=== PATIENT | male | born 1990 | race Caucasian/White ===

== ENCOUNTER 2017-04-04 14:56 | Emergency (ER) | payer OTHER ==
[~2017-04-04] VITALS: Ht 185.4 cm; Wt 99.8 kg
[~2017-04-04 14:56] MED LIST: BENADRYL25 M1 PO; KEFLEX 500MG.500 MG PO; NOMEDS *
--- OUTSIDE RECORDS SUMMARY | 2017-04-04 15:02 | External Medical Summary Rpt | CCD ---
Author Author , YADIRA Organization YADIRA Address Unknown Phone [email or web address] Purpose Continuity of Care Document - 08-17-2016 through 2016 Results Labs Lab Lab Date Result Refere Interp Status Commen Order Detail nces retati t Range on CHLAMYDIA AND GONORRHEA TESTING (08-17-2016 13:30) Chlamyd POSITIV complet ia 017 E ed trachom 13:30 atis rRNA [Presen ce] in Unspeci fied specime n by Probe & target amplifi cation method Neisser NEGATIV complet ia 017 E ed gonorrh 13:30 oeae rRNA [Presen ce] in Unspeci fied specime n by Probe & target amplifi cation method CHLAMYDIA AND GONORRHEA TESTING (08-17-2016 13:30) COLLECT AH/GENP complet OR 017 ROBE ed 13:30 ETHNICI WHITE, complet TY 017 NON-HIS ed 13:30 PANIC KIT complet EXPIRAT 017 017 ed ION 13:30 DATE SYMPTOM NO complet S 017 ed 13:30 REASON SEX complet FOR 017 PARTNER ed REQUEST 13:30 REFERRA L SPECIME URINE complet N 017 ed SOURCE 13:30 PREGNAN NO complet T 017 ed 13:30 CHART N/A complet NUMBER 017 ed 13:30 Chlamyd Pending complet ia 017 ed trachom 13:30 atis rRNA [Presen ce] in Unspeci fied specime n by Probe & target amplifi cation method Neisser Pending complet ia 017 ed gonorrh 13:30 oeae rRNA [Presen ce] in Unspeci fied specime n by Probe & target amplifi cation method
--- OUTSIDE RECORDS SUMMARY | 2017-04-04 15:02 | External Medical Summary Rpt | CCD ---
Author Author , YADIRA Organization YADIRA Address Unknown Phone [email or web address] Purpose Continuity of Care Document - 08-17-2016 [...]
--- OUTSIDE RECORDS SUMMARY | 2017-04-04 15:03 | External Medical Summary Rpt ---
Author Author YADIRA Erickson, YADIRA [employer] Address Unknown Phone Unavailable Results CHLAMYDIA AND GONORRHEA TESTING Observa Value Referen Units Interpr Notes Date tion ce etation Range COLLECT AH/GENP No No No No Aug 17 OR ROBE informa informa informa informa 2017 tion in tion in tion in tion in 1:30 PM source source source source data data data data ETHNICI WHITE, No No No No Aug 17 TY NON-HIS informa informa informa informa 2017 PANIC tion in tion in tion in tion in 1:30 PM source source source source data data data data KIT 05-31-2 No No No No Aug 17 EXPIRAT 017 informa informa informa informa 2017 ION tion in tion in tion in tion in 1:30 PM DATE source source source source data data data data SYMPTOM NO No No No No Aug 17 S informa informa informa informa 2017 tion in tion in tion in tion in 1:30 PM source source source source data data data data REASON SEX No No No No Aug 17 FOR PARTNER informa informa informa informa 2017 REQUEST tion in tion in tion in tion in 1:30 PM REFERRA source source source source L data data data data SPECIME URINE No No No No Aug 17 N informa informa informa informa 2017 SOURCE tion in tion in tion in tion in 1:30 PM source source source source data data data data PREGNAN NO No No No No Aug 17 T informa informa informa informa 2017 tion in tion in tion in tion in 1:30 PM source source source source data data data data CHART N/A No No No No Aug 17 NUMBER informa informa informa informa 2017 tion in tion in tion in tion in 1:30 PM source source source source data data data data Chlamyd POSITIV No No No NEGATIV Aug 17 ia E informa informa informa E 2017 trachom tion in tion in tion in RESULT= 1:30 PM atis source source source WITHIN rRNA data data data NORMAL [Presen ce] in LIMITSP Unspeci OSITIVE fied specime RESULT= n by Probe & ABNORMA target LEQUIVO RAKESH amplifi RESULT= cation method INDETER MINATEU NSATISF ACTORY RESULT= INVALID Neisser NEGATIV No No No NEGATIV Aug 17 ia E informa informa informa E 2017 gonorrh tion in tion in tion in RESULT= 1:30 PM oeae source source source WITHIN rRNA data data data NORMAL [Presen ce] in LIMITSP Unspeci OSITIVE fied specime RESULT= n by Probe & ABNORMA target LEQUIVO RAKESH amplifi RESULT= cation method INDETER MINATEU NSATISF ACTORY RESULT= INVALID THE APTIMA COMBO 2 ASSAY IS NOT INTENDE D FOR THE EVALUAT ION OF SUSPECT EDSEXUA L ABUSE OR FOR OTHER MEDICO- LEGAL INDICAT IONS. FOR THOSE PATIENT S FORWHOM A FALSE POSITIV E RESULT MAY HAVE ADVERSE PSYCHO- SOCIAL IMPACT, [facility] RET[facility]I NG.\.br \This report contain s patient informa tion that must be protect ed in accorda nce with the Health Insuran ce Portabi lity and Account ability Act. CHLAMYDIA AND GONORRHEA TESTING Observa Value Referen Units Interpr Notes Date tion ce etation Range COLLECT AH/GENP No No No No Aug 17 OR ROBE informa informa informa informa 2017 tion in tion in tion in tion in 1:30 PM source source source source data data data data ETHNICI WHITE, No No No No Aug 17 TY NON-HIS informa informa informa informa 2017 PANIC tion in tion in tion in tion in 1:30 PM source source source source data data data data KIT 05-31-2 No No No No Aug 17 EXPIRAT 017 informa informa informa informa 2017 ION tion in tion in tion in tion in 1:30 PM DATE source source source source data data data data SYMPTOM NO No No No No Aug 17 S informa informa informa informa 2017 tion in tion in tion in tion in 1:30 PM source source source source data data data data REASON SEX No No No No Aug 17 FOR PARTNER informa informa informa informa 2017 REQUEST tion in tion in tion in tion in 1:30 PM REFERRA source source source source L data data data data SPECIME URINE No No No No Aug 17 N informa informa informa informa 2017 SOURCE tion in tion in tion in tion in 1:30 PM source source source source data data data data PREGNAN NO No No No No Aug 17 T informa informa informa informa 2017 tion in tion in tion in tion in 1:30 PM source source source source data data data data CHART N/A No No No No Aug 17 NUMBER informa informa informa informa 2017 tion in tion in tion in tion in 1:30 PM source source source source data data data data Chlamyd Pending No No No No Aug 17 ia informa informa informa informa 2017 trachom tion in tion in tion in tion in 1:30 PM atis source source source source rRNA data data data data [Presen ce] in Unspeci fied specime n by Probe & target amplifi cation method Neisser Pending No No No \.br\Aug 17 ia informa informa informa is 2017 gonorrh tion in tion in tion in report 1:30 PM oeae source source source contain rRNA data data data s [Presen patient ce] in Unspeci informa fied tion specime that n by must be Probe & target protect ed in amplifi accorda cation nce method with the Health Insuran ce Portabi lity and Account ability Act.
--- OUTSIDE RECORDS SUMMARY | 2017-04-04 15:03 | External Medical Summary Rpt | CCD ---
Author Author , YADIRA Organization YADIRA Address Unknown Phone [employer] Immunization Name Date Rout CVX Reac Dose Comm Prov Is Faci e tion ent ider Refu lity Give sed n Hep 02-1 43 999 Hist H149 No H149 B, 3-20 oric adul 09 al t Info rmat ion - Sour ce Unsp ecif ied Hep 08-0 43 999 Hist H149 No H149 B, 8-20 oric adul 08 al t Info rmat ion - Sour ce Unsp ecif ied Hep 07-0 43 999 Hist H149 No H149 B, 8-20 oric adul 08 al t Info rmat ion - Sour ce Unsp ecif ied
--- OUTSIDE RECORDS SUMMARY | 2017-04-04 15:03 | External Medical Summary Rpt | CCD ---
Author Author [employer] Organization [employer] Address Unknown Phone Unavailable Purpose Continuity of Care Document - through 2016
--- OUTSIDE RECORDS SUMMARY | 2017-04-04 15:03 | External Medical Summary Rpt ---
Author Author YADIRA Erickson, YADIRA [employer] Organization [employer] Address Unknown Phone Unavailable [...] MAY HAVE ADVERSE PSYCHO- SOCIAL IMPACT, [facility] NG.\.br \This report [...]
--- OUTSIDE RECORDS SUMMARY | 2017-04-04 15:03 | External Medical Summary Rpt | CCD ---
Author Author , YADIRA Organization YADIRA Address Unknown Phone [email or web address] Immunization Name Date Rout CVX Reac Dose [...]
[2017-04-04] MEDS ORDERED: ZOFRAN4 MG PO (15:39)
--- NOTE | 2017-04-04 15:40 | Urgent Treatment Center Report ---
History of Present Issue Date/Time Seen by Provider 04/04/17 1533 Visit Reason Pt arrived: Presenting Problem: Location if Accident: Onset of symptoms date/time:/ or onset unknown for: Have you (or family members/close friends) recently traveled outside the [place]? If Yes, where/when: Have you had exposure to infectious disease within the past month? TB? Other? Specify: Source patient, RN notes reviewed Exam Limitations no limitations Comment 26-year-old male presents today for abdominal pain, nausea, vomiting, and diarrhea. Patient states he ate at a [employer] restaurant last night. Hours later complained of abdominal pain with vomiting and diarrhea. Patient states he's been up all night due to the nausea and vomiting. ALLERGIES Coded Allergies: Honey Bee (BEE,HONEY) (04/04/17) Home Medications Active Scripts Diphenhydramine Hcl (Benadryl TABLET) 50 MG PO Q4HP #30 Prov: 11/15/10 Reported Medications No Home Medications (NO HOME MEDICATIONS) 1 X * ONCE History Medical History General CAD? No Angina: No PR: No Hypertension? No Hyperlipidemia? No CHF? No DVT? No PE? No COPD? No Asthma? No Anemia? No GERD? No Gastric ulcers? No GI Bleed? No Hernia? No Thyroid Problems? No Hypothyroidism? No CVA? No Seizures? No Diabetes? No Renal Insuffiency? No UTI? No Stones? No BPH? No GB Disease: No Nephritic Syndrome? No Asplenia? No Hepatitis? No Sickle Cell Disease? No Arthritis? No Migraines? No Cataracts? No Glaucoma? No MRSA? No HIV? No TB? No Anxiety? No Depression? No Cancer? No More? No Immunization HX DT/Tetanus 11/14/08 Surgical Hx Previous Surgery?N Social History Smoking Hx Packs/day < 1 Pack Alcohol Alcohol: No Review of Systems All Other Systems Reviewed and Negative Gastrointestinal see HPI, abdominal pain, diarrhea, nausea, vomiting Physical Exam Vital Signs Vital Signs Date Time Temp Pulse Resp B/P Pulse O2 O2 Flow FiO2 Ox Delivery Rate 04/04 1532 97.8 97 18 118/73 98 - WBC >12,000 or <4,000 or 10% bands? 2 or more SIRS Criteria Met? B/P: MAP: Creatinine >2.0? UA output<0.5ml/kg/hr for 2 hrs? Platelet count >100,000? Lactate >2.0mmol/1? INR >1.2 or PTT > than 60 sec? Evidence of Organ Dysfunction? Provider documented clinical suspician of infection? Sepsis Criteria Count: Sepsis Risk: General Appearance normal appearance, WD/WN, no apparent distress Respiratory Status Yes: trachea midline, chest symmetrical, non tender chest. No: respiratory distress. Lung Sounds bilateral: normal breath sounds, lungs clear. Cardiovascular normal exam, regular rate/rhythm, no peripheral edema Gastrointestinal normal bowel sounds, normal exam, soft, tenderness (thoughout abd) Neurologic alert, normal exam, oriented x 3 Medical Decision Making LABS/Meds/Orders Pt receiving controlled substance in ED? No Departure Departure Time of Disposition 1536 Disposition DC Home or Self Care(routine) Clinical Impression Primary Impression: Diarrhea Qualifiers: Diarrhea type: unspecified type Qualified Code: R19.7 - Diarrhea, unspecified Secondary Impressions: Abdominal cramping Nausea and vomiting Qualifiers: Vomiting type: unspecified Vomiting Intractability: unspecified Qualified Code: R11.2 - Nausea with vomiting, unspecified Condition STABLE Referrals Tucker SWANSON,A.C. (Family) Patient Instructions Acute Abdominal Pain, Diarrhea, Nausea and Vomiting-Adult Additional Instructions Increase fluids, no Imodium dhaval diet Follow-up with PCP this week Symptoms worsen or do not improve return or be seen in the ER Discharge Counseling Counseled pt/family regarding diagnosis, medications/RX, home care, follow up needs Prescriptions Current Visit Scripts ONDANSETRON HCL (Zofran 4MG Tab) 4 MG PO Q8HP PRN NAUSEA AND VOMITING #20 TAB Comments Patient refused diarrhea panel at this time at 1547
[2017-04-04 15:41] VITALS: BP 118/73
== END 2017-04-04 15:43 | disposition home or self-care (01) ==
LOC: UTC 14:56
DX: R19.7 Diarrhea, unspecified (principal); R10.9 Unspecified abdominal pain; R11.2 Nausea with vomiting, unspecified; Z91.030 Bee allergy status